=== PATIENT | female | born 1955 | race Caucasian/White ===

== ENCOUNTER 2017-12-08 08:16 | Day surgery (SDC) | END 2017-12-08 10:55 | disposition home or self-care (01) ==

== ENCOUNTER 2019-05-08 09:18 | Day surgery (SDC) | payer OTHER ==
[~2019-05-08] VITALS: Ht 152.4 cm; Wt 57.7 kg
[~2019-05-08 09:18] MED LIST: BENA20TA4 PO
[2019-05-08 10:24] VITALS: Ht 152.4 cm; Wt 57.7 kg
[2019-05-08 10:55] VITALS: BP 131/63; PULSE 64; RESP 12
[2019-05-08] MEDS ORDERED: FENTAnyl 50 MCG/ML VIAL ONE (11:39)
[2019-05-08] MEDS ORDERED: MIDAZOLAM 1 MG/ML 2 ML INJ ONE ×3 (11:39)
[2019-05-08 11:52] VITALS: BP 127/67; PULSE 58; RESP 18
== END 2019-05-08 15:34 | disposition home or self-care (01) ==
LOC: GIL 09:18
PROVIDERS: ATTEND Internal Medicine Gastroenterology
DX: Z12.11 Encounter for screening for malignant neoplasm of colon (principal); K64.8 Other hemorrhoids; I10 Essential (primary) hypertension
CPT/HCPCS: 45378; J2250; J3010